=== PATIENT | female | born 1935 | race Two or more races ===

== ENCOUNTER 2017-04-19 20:43 | Emergency (ER) | payer BC ==
[~2017-04-19] VITALS: Ht 152.4 cm; Wt 65.8 kg
--- NOTE | 2017-04-19 20:52 | Emergency Room Report ---
History of Present Illness General Chief Complaint: Upper Extremity Injury Source: Patient Present Illness HPI Patient is an 81-year-old female who presented after a fall alternative enter the bus. Patient was having increased left upper extremity pain as well as low back pain. Patient denies other locations of pain. Injury occurred prior to arrival. Patient was brought in by EMS.She denies loss of consciousness. Allergies: Coded Allergies: PENICILLINS (Verified Allergy, Unknown, 04/19/17) Patient History Now: No Reviewed Nursing Documentation: PMH: Agreed, PSxH: Agreed Nursing Documentation-PMH Hx Hypertension: Yes Hx Diabetes: Yes Review of Systems All Other Systems: negative except mentioned in HPI Physical Exam Vital Signs Date Time Temp Pulse Resp B/P (MAP) Pulse Ox O2 Delivery O2 Flow Rate FiO2 04/19/17 20:35 98.8 73 16 188/79 99 Room Air 98.8 Sp02 EP Interpretation: reviewed, normal General Appearance: normal inspection, well appearing, no apparent distress, alert, GCS 15 Head: atraumatic ENT: normal ENT inspection, hearing grossly normal, normal voice Neck: normal inspection, full range of motion, supple, no bony tend Respiratory: normal inspection, lungs clear, normal breath sounds, no respiratory distress, no retraction, no wheezing Cardiovascular #1: regular rate, rhythm, no edema Gastrointestinal: normal inspection, normal bowel sounds, non tender, soft, no guarding, no hernia Genitourinary: no CVA tenderness Musculoskeletal: normal inspection, back normal, other - deformity to wrist Neurologic: normal inspection, alert, oriented x3, responsive, lockstitch lining maker III-XII nml as tested, speech normal Psychiatric: normal inspection, judgement/insight normal, mood/affect normal Skin: normal color, no rash, other - left wrist deformity, Procedures Additional Procedure Procedure Narrative The patient's left wrist was sterilely prepped and draped. An 18-gauge needle was introduced into the area fracture and blood was aspirated. Patient was anesthetized with 5 mL of 0.5% Marcaine. The patient's fracture was subsequently reduced with axial traction and placed in a sugar tong splint. The patient had adequate movement of her fingers after splinting. Medical Decision Making Diagnostic Impression: Primary Impression: Contusion, back Additional Impression: Wrist fracture, left ER Course Patient presented after fall. Differential diagnosis included was not limited to wrist fracture, dislocation, sprain, lumbar fracture among others.Because of complexity of patient's case laboratory testing and imaging studies were ordered. CT imaging of the lumbar spine read by radiology showed evidence of a compression fracture which appears to be chronic. X-ray imaging of the left wrist 3 views interpreted by me showed a distal radius fracture. The postreduction x-ray showed improved alignment. Patient was noted to have the some soft tissue swelling. Patient was advised to have definitive management with orthopedics within the next 2-3 days. The patient is advised to follow up with primary care doctor in 1-2 days. Patient is advised to return if any worsening condition or if any changes in status that are concerning. This report is dictated with [employer] manager risk management software which may occasionally lead to discrepancies related to use of this software. Last Vital Signs Date Time Temp Pulse Resp B/P (MAP) Pulse Ox O2 Delivery O2 Flow Rate FiO2 04/19/17 20:35 98.8 73 16 188/79 99 Room Air 98.8 Status: improved Disposition: HOME, SELF-CARE Condition: Stable Scripts Tramadol Hcl/Acetaminophen (TRAMADOL-ACETAMINOPHN 37.5-325) 1 Each Tablet 1 TAB ORAL Q12HR for For Pain, #30 TAB Prov: Ganesh Manning 04/20/17 Ganesh Manning Apr 19, 2017 20:52
[2017-04-19] MEDS ORDERED: Ketorolac 60mg Inj IM ONE (21:00)
[2017-04-19] MEDS ORDERED: Morphine Sulfate 2mg/ml Inj IM ONE (21:00)
[2017-04-19] MEDS ORDERED: Bupivacaine 0.5% Inj 30 ml vial INJ ONE (21:45)
[2017-04-19 23:30] VITALS: BP 167/80
[2017-04-20] MEDS ORDERED: TRAMADOL-ACETA1 EACH ORAL (00:13)
[2017-04-20 00:20] VITALS: BP 167/80
--- NOTE | 2017-04-20 09:54 | Diagnostic Imaging Report ---
Indications: Back pain Technique: Spiral acquisitions obtained through the lumbar spine. Multiplanar reconstructions were generated. No IV contrast utilized. Total dose length product 304.57 mGycm. CTDIvol(s) 13.26 mGy. Dose reduction achieved using automated exposure control Comparison: none Findings: There is posterior offset of T12 on L1, presumably due to disc degeneration. There is very slight anterior offset of L4 on L5, L5 on S1. The remainder of the bony alignment is normal. There is very slight superior endplate depression of L3, which may be developmental or on the basis of old injury. The vertebral body heights are otherwise preserved. No acute fractures. No dislocations. At T12-L1, there is severe degenerative disc narrowing, with near complete obliteration of the disc space. There is associated subchondral sclerosis and vacuum formation. No significant disc bulge or protrusion or spinal stenosis. At L3-L4, disc spaces preserved. There is vacuum formation within the disc indicating degenerative change. There is mild circumferential nodular bulge. This, combination with bilateral facet arthrosis, results in borderline narrowing of the spinal canal. The neural foramina are preserved. At L4-5, no disc narrowing, disc bulge or protrusion. 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 Note is significant neural foraminal stenosis. At L5-S1, the facets are likewise fused. There is disc calcification but the disc spaces preserved. No significant disc bulge or protrusion, spinal stenosis, or neural foraminal stenosis. The included extra spinal soft tissues are unremarkable for the presence of colonic diverticulosis. A 6 mm calyceal calcification is seen in the lower pole left kidney. No associated hydronephrosis Impression: No acute bony trauma Degenerative changes as detailed above Incidental findings of colonic diverticulosis, left renal calculus. This agrees with the preliminary interpretation provided overnight by [facility]. The CT scanner at [facility] is accredited by the [employer] and the scans are performed using protocols designed to limit radiation exposure to as low as reasonably achievable to attain images of sufficient resolution adequate for diagnostic evaluation.
--- NOTE | 2017-04-20 11:19 | Diagnostic Imaging Report ---
Clinical Indication:Pain, swelling, status post fall Technique: 3 views of the left wrist Comparison: None Findings: There is a transverse fracture of the distal radius. The distal fragment is posteriorly dislocated by one bone width and overrides by several centimeters. The carpus is also dislocated relative to the ulna. No definite ulnar fracture demonstrated. Impression: Positive for distal radial fracture/dislocation. This was apparently recognized by the ED physician as a subsequent post reduction/post splinting radiograph is available
--- NOTE | 2017-04-20 11:32 | Diagnostic Imaging Report ---
Clinical Indication:Reason For Exam: PAIN Technique: 3 or 4 views of the left wrist Comparison: One and one half hours earlier Findings: Interval closed reduction and splinting of previously demonstrated left wrist fracture dislocation. Overlying splint obscures bony detail. There is improved anatomic alignment, although there is still about one half width posterior displacement as well as overriding of the distal fragment Impression: Improved alignment of left distal radial fracture/dislocation, post closed reduction and splinting
== END 2017-04-20 00:20 | disposition home or self-care (01) ==
LOC: EDBD 20:43 → EMR 23:02
DX: S62.102A Fracture of unspecified carpal bone, left wrist, initial encounter for closed fracture (principal); S30.0XXA Contusion of lower back and pelvis, initial encounter; I10 Essential (primary) hypertension; E11.9 Type 2 diabetes mellitus without complications; Z88.0 Allergy status to penicillin; W19.XXXA Unspecified fall, initial encounter; Y92.811 Bus as the place of occurrence of the external cause
CPT/HCPCS: 25605; 72131; 73110; 96372; 99284; J2270; J3490; 29125